=== PATIENT | female | born 1960 | race Caucasian/White ===

== ENCOUNTER → 2016-08-30 | Outpatient (CLI) | payer BC ==
[~2016-08-30] VITALS: Ht 160 cm; Wt 110.6 kg
[~2016-08-30] MED LIST: ACET-1256 PO; ASPEC81 PO; CALCTAB5 PO; CITA40TA12 PO; CLX20 PO; CMD5 PO; CMD75 PO; DIPH-437 PO; FLV1 PO; LEVO25TA PO; LIRA18IN SC; LISI-461 PO; LOSA50TA54 PO; MELA1TAB54 PO; MELATONIN PO; METF-382 PO; METF1000 PO; MULT-506 PO; SIMV40TA4 PO; SITA50TA3 PO; TEMA30CA4 PO; TRAZ50TA35 PO; WARF5TAB90 PO; WARF7.5T4 PO
[2016-08-30 16:03] VITALS: BP 134/80; PULSE 106; Ht 160 cm; Wt 110.6 kg
== END | disposition home or self-care (01) ==
LOC: C.NEUR 15:30
PROVIDERS: ATTEND Internal Medicine Pulmonary Disease
DX: G47.33 Obstructive sleep apnea (adult) (pediatric) (principal)

== ENCOUNTER 2016-10-03 09:36 | Observation (INO) | payer BC ==
[~2016-10-03] VITALS: Ht 160 cm; Wt 101.1 kg
[~2016-10-03 09:36] MED LIST changes: -ASPEC81 PO; -CITA40TA12 PO; -CMD5 PO; -LIRA18IN SC; -LOSA50TA54 PO; -MELA1TAB54 PO; -METF1000 PO; -SITA50TA3 PO; -TRAZ50TA35 PO; -WARF7.5T4 PO
[2016-10-03] MEDS ORDERED: CITA40TA12 PO (10:04)
--- NOTE | 2016-10-03 10:04 | EMERGENCY ROOM VISIT NOTE ---
History Report prepared by Artie: Subhash Cedeño Under the Supervision of: Dr. Lyudmila Murphy M.D. First contact with patient: 09:50 Chief Complaint: CARDIAC ASSESSMENT Stated Complaint: NECK AND LEFT ARM PAIN Nursing Triage Summary: pt reports mid chest pain that started 1 day ago feels like a cramp radiates into L shoulder and L arm , denies increased sob, reports Fri and sat. " I had a funny feeling in neck History of Present Illness The patient is a 56 year old female who presents to the Emergency Room with complaints of persistent discomfort in her neck that started 2 days ago. The patient notes that this discomfort radiates into her left arm. She also describes a fluttering sensation in her neck that she experienced over the weekend, but this discomfort has since resolved. The patient complained of chest pain two days ago, but notes that this symptom resolved on its own. She presents to the ED this morning because her neck discomfort was worsening. The patient also knows that she has been feeling more fatigued over the past few days. At this time, she denies pain in her chest or back, shortness of breath, or swelling in her legs. Source of History: patient Onset: 2 days ago Position: neck Quality: other (fluttering sensation) Timing: other (persistent) Associated Symptoms: + chest pain (over the weekend, but has since resolved on its own), No SOB, No back pain Note: Other associated symptoms: radiation to left arm, fluttering in neck sensation. Denies: swelling in her legs Review of Systems See HPI for pertinent positives & negatives. A total of 10 systems reviewed and were otherwise negative. Past Medical & Surgical Medical Problems: (1) Benign hypertension (2) Chest pain (3) Diabetes mellitus (4) malignant hematoma (5) Neck pain (6) Pulmonary embolism Family History FH: myocardial infarction Heart disease Social History Smoking Status: Never Smoker Marital Status: Housing Status: lives with family Occupation Status: employed Current/Historical Medications Scheduled Acetaminophen (Tylenol), 1,000 MG PO Q8HR PRN Aspirin (Aspirin EC Low Dose), 81 MG PO QAM Citalopram Hydrobromide (Celexa), 40 MG PO DAILY Liraglutide (Victoza), 1.8 MG SC DAILY Losartan Potassium (Cozaar), 50 MG PO DAILY Melatonin (Melatonin), 5 MG PO HS Metformin Hcl (Glucophage), 1,000 MG PO BID Simvastatin (Zocor), 40 MG PO QPM Sitagliptin (Januvia), Unknown Dose PO DAILY Trazodone Hcl (Trazodone), 50 MG PO HS Warfarin Sod (Coumadin), 5 MG PO 3XWK Warfarin Sod (Jantoven), 7.5 MG PO 4XWK Allergies Coded Allergies: No Known Allergies (Unverified , 10/03/16) Physical Exam Vital Signs Date Time Temp Pulse Resp B/P Pulse Ox O2 Delivery O2 Flow Rate FiO2 10/03/16 13:40 74 18 124/77 94 Room Air 10/03/16 13:18 71 10/03/16 12:06 67 18 125/84 96 Room Air 10/03/16 10:57 74 16 107/76 94 Room Air 10/03/16 10:42 88 107/76 96 Room Air 10/03/16 09:59 75 10/03/16 09:42 36.9 77 18 138/77 95 Room Air Physical Exam Vital signs reviewed. General: Obese otherwise well-appearing female, in no distress. HEENT: No scleral icterus, PERRLA, neck supple. Atraumatic. Cardiovascular: Regular rate and rhythm, no extra sounds. Pulmonary: Clear to auscultation bilaterally, normal work of breathing. Abdomen: Soft, nontender, nondistended, positive bowel sounds. Musculoskeletal: Atraumatic, no peripheral edema. Neurologic: Patient awake alert and oriented x 3, full strength in all 4 extremities. Cranial nerves 2 through 12 grossly intact. Skin: Warm, dry, no rash Medical Decision & Procedures ER Provider Diagnostic Interpretation: X-ray results as stated below per interpretation by me and the radiologist: CHEST ONE VIEW PORTABLE HISTORY: Atypical chest pain COMPARISON: Chest 09/04/2012. FINDINGS: The lungs are clear. Cardiac silhouette is normal in size. No pleural effusions. No pneumothorax. IMPRESSION: No acute process. Electronically signed by: Chandan Chavez M.D. 10/03/2016 10:55 AM Dictated Date/Time: 10/03/2016 10:54 AM Laboratory Results 10/03/16 10:00 Red Blood Count 4.28, Mean Corpuscular Volume 84.8, Mean Corpuscular Hemoglobin 28.5, Mean Corpuscular Hemoglobin Concent 33.6, Mean Platelet Volume 10.8, Neutrophils (%) (Auto) 54.9, Lymphocytes (%) (Auto) 35.4, Monocytes (%) (Auto) 7.0, Eosinophils (%) (Auto) 2.0, Basophils (%) (Auto) 0.5, Neutrophils # (Auto) 3.22, Lymphocytes # (Auto) 2.08, Monocytes # (Auto) 0.41, Eosinophils # (Auto) 0.12, Basophils # (Auto) 0.03 10/03/16 10:00 Test 10/03/16 10:00 10/03/16 12:29 White Blood Count 5.87 K/uL (4.8-10.8) Red Blood Count 4.28 M/uL (4.2-5.4) Hemoglobin 12.2 g/dL (12.0-16.0) Hematocrit 36.3 % (37-47) Mean Corpuscular Volume 84.8 fL (80-100) Mean Corpuscular Hemoglobin 28.5 pg (25-34) Mean Corpuscular Hemoglobin Concent 33.6 g/dl (32-36) Platelet Count 179 K/uL (130-400) Mean Platelet Volume 10.8 fL (7.4-10.4) Neutrophils (%) (Auto) 54.9 % Lymphocytes (%) (Auto) 35.4 % Monocytes (%) (Auto) 7.0 % Eosinophils (%) (Auto) 2.0 % Basophils (%) (Auto) 0.5 % Neutrophils # (Auto) 3.22 K/uL (1.4-6.5) Lymphocytes # (Auto) 2.08 K/uL (1.2-3.4) Monocytes # (Auto) 0.41 K/uL (0.11-0.59) Eosinophils # (Auto) 0.12 K/uL (0-0.5) Basophils # (Auto) 0.03 K/uL (0-0.2) RDW Standard Deviation 46.4 fL (36.4-46.3) RDW Coefficient of Variation 15.0 % (11.5-14.5) Immature Granulocyte % (Auto) 0.2 % Immature Granulocyte # (Auto) 0.01 K/uL (0.00-0.02) Prothrombin Time 28.2 SECONDS (9.0-12.0) Prothromb Time International Ratio 2.5 (0.9-1.1) Activated Partial Thromboplast Time 34.5 SECONDS (21.0-31.0) Partial Thromboplastin Ratio 1.3 Anion Gap 12.0 mmol/L (3-11) Est Creatinine Clear Calc Drug Dose 91.4 ml/min Estimated GFR () 92.0 Estimated GFR (Non- 79.4 BUN/Creatinine Ratio 12.0 (10-20) Calcium Level 9.1 mg/dl (8.5-10.1) Total Bilirubin 0.4 mg/dl (0.2-1) Direct Bilirubin 0.1 mg/dl (0-0.2) Aspartate Amino Transf (AST/SGOT) 35 U/L (15-37) Alanine Aminotransferase (ALT/SGPT) 59 U/L (12-78) Alkaline Phosphatase 60 U/L (45-117) Total Creatine Kinase 76 U/L (26-192) Total Protein 7.0 gm/dl (6.4-8.2) Albumin 3.7 gm/dl (3.4-5.0) Lipase 218 U/L (73-393) Hepatitis C Antibody Screen NEG (NEG) Bedside Troponin I 0.000 ng/ml (0-0.045) Laboratory results per my review. Medications Administered Medications (Trade) Dose Ordered Sig/Tammi Route Start Time Stop Time Status Last Admin Dose Admin Aspirin (Aspirin Chew) 324 mg NOW STAT PO 10/03/16 10:30 10/03/16 10:32 DC 10/03/16 10:42 324 MG ECG Indication: chest pain Rate (beats per minute): 71 Rhythm: normal sinus Findings: no acute ischemic change, no ectopy ED Course 0954: Past medical records reviewed. The patient was evaluated in room A3. A complete history and physical examination was performed. 1030: Ordered Aspirin 324 mg PO. 1253: At this time, I reevaluated the patient and discussed the treatment plan with her. She is comfortable with staying in the hospital for further evaluation. 1302: At this time, I discussed the patient's case with Dr. Vinson - Hospitalist [facility] and he agreed to accept the patient for further evaluation. Medical Decision Differential diagnoses: Acute coronary syndrome, pulmonary embolus, aortic dissection, musculoskeletal pain, pneumonia, pleural effusion, pneumothorax This pt was evaluated and appeared to be in no distress. IV access was obtained and lab work was drawn. Pt was given ASA to chew. 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 EKG reveals no acute ischemia. Lab work reveals negative cardiac enzymes. CXR is clear. Given pt's multiple cardiac risk factors, the case was d/w the hospitalist service for further management. Pt agrees with the plan. Consults Time Called: 1254 Consulting Physician: Dr. Vinson - Hospitalist [facility] [place] Returned Call: 1302 At this time, I discussed the patient's case with Dr. Vinson and he agreed to accept the patient for further evaluation. Impression Primary Impression: Chest pain radiating to upper extremity Scribe Attestation The scribe's documentation has been prepared under my direction and personally reviewed by me in its entirety. I confirm that the note above accurately reflects all work, treatment, procedures, and medical decision making performed by me. Departure Information Dispostion Being Evaluated By Hospitalist Prescriptions Aspirin (Aspirin EC Low Dose) 81 Mg Ectab 81 MG PO QAM for 30 Days Prov: Alejandra Schwab MD 10/04/16 Referrals Florence Romo DO (PCP)
[2016-10-03] MEDS ORDERED: LOSA50TA54 PO (10:05)
[2016-10-03] MEDS ORDERED: METF1000 PO (10:05)
[2016-10-03] MEDS ORDERED: CMD5 PO (10:07)
[2016-10-03] MEDS ORDERED: WARF7.5T4 PO (10:07)
[2016-10-03] MEDS ORDERED: LIRA18IN SC (10:08)
[2016-10-03] MEDS ORDERED: SITA50TA3 PO (10:08)
[2016-10-03] MEDS ORDERED: TRAZ50TA35 PO (10:09)
[2016-10-03] MEDS ORDERED: MELA1TAB54 PO (10:09)
[2016-10-03] MEDS ORDERED: ASPIRIN 81 MG CHEW PO STA (10:30)
[2016-10-03 10:56] LABS: BASO % 0.5 %; BASO ABS # 0.03 K/uL (0-0.2); COMPLETE YES; HEMATOCRIT 36.3 % (37-47); IG% 0.2 %; LYMPH % 35.4 %; LYMPH ABS # 2.08 K/uL (1.2-3.4); MEAN CELL VOLUME 84.8 fL (80-100); MEAN CORPUSCULAR HEMOGLOBIN 28.5 pg (25-34); MEAN CORPUSCULAR HGB CONC 33.6 g/dl (32-36); MEAN PLATELET VOLUME 10.8 fL (7.4-10.4); NEUT % 54.9 %; PLATELET COUNT 179 K/uL (130-400); RED BLOOD COUNT 4.28 M/uL (4.2-5.4); WHITE BLOOD COUNT 5.87 K/uL (4.8-10.8)
--- NOTE | 2016-10-03 10:56 | DIAGNOSTIC IMAGING REPORT ---
CHEST ONE VIEW PORTABLE HISTORY: Atypical chest pain COMPARISON: Chest 09/04/2012. FINDINGS: The lungs are clear. Cardiac silhouette is normal in size. No pleural effusions. No pneumothorax. IMPRESSION: No acute process. Electronically signed by: Chandan Chavez M.D. 10/03/2016 10:55 AM Dictated Date/Time: 10/03/2016 10:54 AM
[2016-10-03 11:04] LABS: INR 2.5 (0.9-1.1); PARTIAL THROMBOPLASTIN RATIO 1.3; PROTHROMBIN TIME (PATIENT) 28.2 SECONDS (9.0-12.0)
[2016-10-03 11:15] LABS: CALCIUM 9.1 mg/dl (8.5-10.1); CREATININE 0.83 mg/dl (0.60-1.20); POTASSIUM 4.2 mmol/L (3.5-5.1)
[2016-10-03 11:19] LABS: CKMB/CK RATIO 0.7 (0-3.0)
[2016-10-03] MEDS ORDERED: NITROGLYCERIN 0.4 MG SL PER TAB CHARGE SL PRN (14:00)
[2016-10-03] MEDS ORDERED: GLUCOSE 10 TABS/TUBE PO PRN (14:30)
[2016-10-03] MEDS ORDERED: GLUCAGON FOR INJ 1 MG VIAL SQ PRN (14:30)
[2016-10-03] MEDS ORDERED: DEXTROSE 50% 50 ML SYR IV PRN (14:30)
[2016-10-03] MEDS ORDERED: GLUCOSE 40% GEL 15 GM TUBE PO PRN (14:30)
[2016-10-03 14:48] VITALS: BP 135/85; PULSE 69; TEMP 36.9; O2SAT 98; Ht 160 cm; Wt 101.1 kg
--- NOTE | 2016-10-03 14:56 | History and Physical ---
History & Physical Date & Time of Service: Oct 03, 2016 at 14:34 Chief Complaint: Neck And Left Arm Pain Primary Care Physician: Florence Romo DO History of Present Illness Source: patient, partner This is a 6 y/o obese female with PMHx of HTN, DM, PE, HLD, PE (1998 and 2011) and depression presented to the hospital complaining of left sided neck and chest pain X2days. Patient states that yesterday around 1:00pm she had left sided chest pain, describes as "crampy", intermittent, rates it as 3/10, lasted for 3 minutes and non radiating. She then had L sided neck pain radiating to her left arm. Describes the pain as "dull", rates it as 3/10, and lasted for 3 minutes. No associated symptoms. She had total 3-4 episodes of intermittent chest pain and neck pain. On Monday and Monday this had total 4 episodes "flattering" sensation on her neck, which lasted for 3 minutes. She was not active and was resting when she had the chest and neck pain. Never had this type of pain before. Denies SOB, nausea, vomiting, diaphoresis, swelling of the leg, numbness, weakness or any other additional complaints. Currently she is asymptomatic and denies any complaints. Patient's mother had heart attack at early 50s and also paternal grandmother because of heart attack at early 50s. Past Medical/Surgical History Medical Problems: (1) Benign hypertension Status: Chronic (2) Diabetes mellitus II Status: Chronic (3) Malignant melanoma Status: Chronic (4) Pulmonary embolism Status: Chronic (5) Hyperlipidemia Status: Chronic (6) Depression Status: Chronic (7) Obese Family History FH: myocardial infarction Heart disease Mother had heart attack at early 50s. Paternal grandmother of heart attack at early 50s. Social History Smoking Status: Never Smoker Alcohol Use: socially Drug Use: none Marital Status: Housing status: lives with significant other Occupational Status: employed Immunizations History of Influenza Vaccine: Yes Influenza Vaccine Date: Apr 28, 2012 History of Tetanus Vaccine?: Yes Tetanus Immunization Date: Sep 04, 2009 History of Pneumococcal: No History of Hepatitis B Vaccine: Yes Hepatitis Immunization Date: Sep 04, 2003 Multi-Drug Resistant Organisms History of MDRO: No Allergies Coded Allergies: No Known Allergies (Unverified , 10/03/16) Home Medications Scheduled Acetaminophen (Tylenol), 1,000 MG PO Q8HR PRN Citalopram Hydrobromide (Celexa), 40 MG PO DAILY Liraglutide (Victoza), 1.8 MG SC DAILY Losartan Potassium (Cozaar), 50 MG PO DAILY Melatonin (Melatonin), 5 MG PO HS Metformin Hcl (Glucophage), 1,000 MG PO BID Simvastatin (Zocor), 40 MG PO QPM Sitagliptin (Januvia), Unknown Dose PO DAILY Trazodone Hcl (Trazodone), 50 MG PO HS Warfarin Sod (Coumadin), 5 MG PO 3XWK Warfarin Sod (Jantoven), 7.5 MG PO 4XWK Review of Systems Constitutional: No chills, No fever Respiratory: No cough, No dyspnea at rest, No dyspnea on exertion, No shortness of breath Cardiovascular: No chest pain, No edema Abdomen: No constipation, No diarrhea, No nausea, No pain, No vomiting Musculoskeletal: No muscle pain Genitourinary - Female: No dysuria Neurologic: No numbness/tingling Integumentary: No rash Physical Exam Vital Signs Date Time Temp Pulse Resp B/P Pulse Ox O2 Delivery O2 Flow Rate FiO2 10/03/16 13:40 74 18 124/77 94 Room Air 10/03/16 13:18 71 10/03/16 12:06 67 18 125/84 96 Room Air 10/03/16 10:57 74 16 107/76 94 Room Air 10/03/16 10:42 88 107/76 96 Room Air 10/03/16 09:59 75 10/03/16 09:42 36.9 77 18 138/77 95 Room Air General Appearance: WD/WN, no apparent distress, + obese Eyes: PERRL, EOMI Neck: supple, no JVD, trachea midline Respiratory/Chest: chest non-tender, lungs clear, normal breath sounds, no respiratory distress Cardiovascular: regular rate, rhythm, no edema, no JVD, no murmur Abdomen/GI: normal bowel sounds, non tender, soft, + pertinent finding (obese) Extremities/Musculoskelatal: normal inspection, no calf tenderness, no pedal edema, non-tender Neurologic/Psych: alert, normal mood/affect, oriented x 3 Skin: normal color, warm/dry, no rash Diagnostics Laboratory Results Results Past 24 Hours Test 10/03/16 10:00 10/03/16 10:40 10/03/16 12:29 Range/Units White Blood Count 5.87 4.8-10.8 K/uL Red Blood Count 4.28 4.2-5.4 M/uL Hemoglobin 12.2 12.0-16.0 g/dL Hematocrit 36.3 37-47 % Mean Corpuscular Volume 84.8 80-100 fL Mean Corpuscular Hemoglobin 28.5 25-34 pg Mean Corpuscular Hemoglobin Concent 33.6 32-36 g/dl Platelet Count 179 130-400 K/uL Mean Platelet Volume 10.8 7.4-10.4 fL Neutrophils (%) (Auto) 54.9 % Lymphocytes (%) (Auto) 35.4 % Monocytes (%) (Auto) 7.0 % Eosinophils (%) (Auto) 2.0 % Basophils (%) (Auto) 0.5 % Neutrophils # (Auto) 3.22 1.4-6.5 K/uL Lymphocytes # (Auto) 2.08 1.2-3.4 K/uL Monocytes # (Auto) 0.41 0.11-0.59 K/uL Eosinophils # (Auto) 0.12 0-0.5 K/uL Basophils # (Auto) 0.03 0-0.2 K/uL RDW Standard Deviation 46.4 36.4-46.3 fL RDW Coefficient of Variation 15.0 11.5-14.5 % Immature Granulocyte % (Auto) 0.2 % Immature Granulocyte # (Auto) 0.01 0.00-0.02 K/uL Prothrombin Time 28.2 9.0-12.0 SECONDS Prothromb Time International Ratio 2.5 0.9-1.1 Activated Partial Thromboplast Time 34.5 21.0-31.0 SECONDS Partial Thromboplastin Ratio 1.3 Sodium Level 141 136-145 mmol/L Potassium Level 4.2 3.5-5.1 mmol/L Chloride Level 107 98-107 mmol/L Carbon Dioxide Level 22 21-32 mmol/L Anion Gap 12.0 3-11 mmol/L Blood Urea Nitrogen 10 7-18 mg/dl Creatinine 0.83 0.60-1.20 mg/dl Est Creatinine Clear Calc Drug Dose 91.4 ml/min Estimated GFR () 92.0 Estimated GFR (Non- 79.4 BUN/Creatinine Ratio 12.0 10-20 Random Glucose 141 70-99 mg/dl Calcium Level 9.1 8.5-10.1 mg/dl Total Bilirubin 0.4 0.2-1 mg/dl Direct Bilirubin 0.1 0-0.2 mg/dl Aspartate Amino Transf (AST/SGOT) 35 15-37 U/L Alanine Aminotransferase (ALT/SGPT) 59 12-78 U/L Alkaline Phosphatase 60 45-117 U/L Total Creatine Kinase 76 26-192 U/L Creatine Kinase MB 0.5 0.5-3.6 ng/ml Creatine Kinase MB Ratio 0.7 0-3.0 Total Protein 7.0 6.4-8.2 gm/dl Albumin 3.7 3.4-5.0 gm/dl Lipase 218 73-393 U/L Bedside Troponin I 0.000 0.000 0-0.045 ng/ml CXR normal Normal EKG Impression Assessment and Plan This is a 6 y/o obese female with PMHx of HTN, DM II, PE, HLD, PE (in 1998 and 2011) and depression presented to the hospital complaining of left sided neck and chest pain X2days. 1. Atypical chest pain/neck pain/unstable angina - Patient has many risk factors including obese, age, HTN, DM, HLD, and FHx of heart problems. - Patient will be admitted to Tele for observation - Order Echo - pending - Start her on ASA 81mg daily - Nitro if has chest pain or abnormal EKG - Trend troponin if has chest pain - If all the works up are negative patient will need to have stress test. Consider Cardio consult then - Continue to monitor in Tele 2. HTN - Continue Losartan 50mg daily 3. DMII - Continue all the home medications (Victoza 1.8mg and Januvia 100mg). Hold Metformin - On sliding scale 4. Hyperlipidemia - Continue Simvastatin 40mg daily 5. Depression - Continue Citalopram 40mg and trazodone 50mg 6. Hx of Pulmonary Embolism - Continue Coumadin 5mg and 7.5mg 7. DVT prophylaxis - Coumadin 8. Code Status - Full code Resuscitation Status FULL RESUSCITATION VTE Prophylaxis VTE Risk Assessment Done? Y/N: Yes Risk Level: Moderate Given or contraindicated: Warfarin (Coumadin) Note more than 45 minutes Assessment and Plan Attending Addendum: I have physically seen and examined this patient, have directed their medical care, have supervised the medical residents activities, and agree with the H&P as noted above, with the following changes: NONE The patient is awake, well-developed and adequately nourished, alert and oriented 3, normocephalic and atraumatic, lying in bed and in no acute distress. HEENT--PERRL, EOMI, mucous membranes and oropharynx dry. Neck--supple, no JVD or bruits, thyroid normal, trachea midline, no adenopathy. Heart--normal S1 and S2, no extra beats, no murmurs, rubs or gallops. Lungs--clear bilaterally with good air movement, no respiratory distress, no accessory muscle use. Abdomen--normal bowel sounds and soft, nontender and nondistended, no hernias or masses, no organomegaly. Extremities--no cyanosis, clubbing or edema. There are good distal pulses b/l. Dermatologic--normal skin turgor, normal color, warm and dry, no abnormal lymph nodes, no rash. Neurologic--cranial nerves II through XII grossly intact, motor and sensory examination normal. Rheumatologic--normal range of motion, nontender, muscles and joints. Psychiatric--normal affect. Assessment and Plan: Precordial chest pain--the patient will be admitted to the telemetry unit, for serial cardiac enzymes, cardiac rhythm monitoring at 2-D echocardiogram with Dopplers. Place on aspirin 81 mg by mouth daily. Continue losartan 50 mg by mouth daily. Risk factors include obesity, family history, age, hypertension, and diabetes mellitus. If workup is negative, she should have a stress echocardiogram prior to discharge. Pulmonary embolism--continue warfarin 5 alternating 7.5 mg daily. Hypercholesterolemia--continue simvastatin 40 mg by mouth daily Diabetes mellitus--hold metformin 1000 mg by mouth twice a day, continue Januvia 50 mg by mouth daily and current dosing of Victoza. Depression/insomnia--continue Celexa 40 mg by mouth daily and trazodone 50 mg by mouth at bedtime. .
[2016-10-03] MEDS ORDERED: IV FLUIDS COMPLETED PRN (15:00)
[2016-10-03] MEDS: INSULIN ASPART 100 UNITS/ML 3 ML PEN SC SCH ×2 (18:34→20:52)
[2016-10-03 19:54] VITALS: BP 122/69; PULSE 76; TEMP 36.8; O2SAT 94
[2016-10-03 20:00] VITALS: O2SAT 94
[2016-10-03] MEDS ORDERED: TRAZODONE HCL 50 MG TAB PO SCH (21:00)
[2016-10-03] MEDS ORDERED: SIMVASTATIN 40 MG TAB PO SCH (21:00)
[2016-10-03] MEDS ORDERED: WARFARIN SOD 5 MG TAB PO ONE (21:45)
[2016-10-04 00:06] VITALS: BP 117/73; PULSE 80; TEMP 36.5; O2SAT 94
[2016-10-04 03:45] VITALS: BP 122/78; PULSE 72; TEMP 36.6; O2SAT 96
[2016-10-04 06:56] VITALS: BP 98/65; PULSE 74; TEMP 36.6; O2SAT 96
[2016-10-04] MEDS: INSULIN ASPART 100 UNITS/ML 3 ML PEN SC SCH ×3 (08:03→17:40)
[2016-10-04] MEDS ORDERED: SITAGLIPTIN 100 MG TAB PO SCH (09:00)
[2016-10-04] MEDS ORDERED: CITALOPRAM 40 MG TAB PO SCH (09:00)
[2016-10-04] MEDS ORDERED: ASPIRIN 81 MG ECTAB PO SCH (09:00)
[2016-10-04] MEDS ORDERED: LOSARTAN POTASSIUM 50 MG TAB PO SCH (09:00)
[2016-10-04 11:05] VITALS: BP 126/78; PULSE 75; TEMP 36.8; O2SAT 91
--- NOTE | 2016-10-04 15:01 | Discharge Summary ---
Discharge Summary Admission Date: Oct 03, 2016 at 14:16 Discharge Date: Oct 04, 2016 Discharge Disposition: Home Principal Diagnosis: Chest discomfort Problems/Secondary Diagnoses: 1. HTN 2. DM 3. PE 4. HLD 5. PE (1998 and 2011) 6. Depression Immunizations: Have You Had Influenza Vaccine: Yes Influenza Vaccine Date: Apr 28, 2012 History of Tetanus Vaccine?: Yes Tetanus Immunization Date: Sep 04, 2009 History of Pneumococcal: No History of Hepatitis B Vaccine: Yes Hepatitis Immunization Date: Sep 04, 2003 Procedures: CHEST ONE VIEW PORTABLE HISTORY: Atypical chest pain COMPARISON: Chest 09/04/2012. FINDINGS: The lungs are clear. Cardiac silhouette is normal in size. No pleural effusions. No pneumothorax. IMPRESSION: No acute process. Electronically signed by: Chandan Chavez M.D. 10/03/2016 10:55 AM Dictated Date/Time: 10/03/2016 10:54 AM The status of this report is Signed. Draft = Not yet reviewed or approved by Radiologist. Signed = Reviewed and approved by Radiologist. Stress ECHO (Jenny Ordaz, SHIREEN) Medication Reconciliation Continued Medications: Acetaminophen (Tylenol) 500 Mg Tab 1000 MG PO Q8HR PRN, TAB Citalopram Hydrobromide (Celexa) 40 Mg Tab 40 MG PO DAILY, TAB Liraglutide (Victoza) 18 Mg/3 Ml Inj 1.8 MG SC DAILY Losartan Potassium (Cozaar) 50 Mg Tab 50 MG PO DAILY, TAB Melatonin (Melatonin) 5 Mg Tab 5 MG PO HS Metformin Hcl (Glucophage) 1,000 Mg Tab 1000 MG PO BID, TAB Simvastatin (Zocor) 40 Mg Tab 40 MG PO QPM, TAB Sitagliptin (Januvia) 50 Mg Tab Unknown Dose PO DAILY, TAB Trazodone Hcl (Trazodone) 50 Mg Tab 50 MG PO HS, TAB Warfarin Sod (Coumadin) 5 Mg Tab 5 MG PO 3XWK 5 mg monday and monday Warfarin Sod (Jantoven) 7.5 Mg Tab 7.5 MG PO 4XWK, TAB 7.5 mg monday, monday, , and monday Referrals At Discharge Follow up Referrals: Family Practice Referral - Within 1 Week with Florence Romo, DO Discharge Exam Review of Systems: Constitutional: No chills, No fatigue, No fever, No sweats, No weakness Respiratory: No cough, No hemoptysis, No shortness of breath Cardiovascular: No chest pain, No edema, No palpitations Abdomen: No constipation, No diarrhea, No nausea, No pain, No vomiting Musculoskeletal: No calf pain, No joint pain, No muscle pain, No swelling Genitourinary - Female: No dysuria, No hematuria Neurologic: No numbness/tingling, No weakness Psychiatric: No anxiety, No depression symptoms Hematologic / Lymphatic: No abnormal bleeding/bruising Integumentary: No itch, No new/changing skin lesions, No rash Physical Exam: General Appearance: no apparent distress Eyes: normal inspection, PERRL ENT: hearing grossly normal Neck: supple Respiratory/Chest: lungs clear, no respiratory distress, no accessory muscle use Cardiovascular: regular rate, rhythm, normal peripheral pulses Abdomen / GI: normal bowel sounds, non tender, soft Extremities: no calf tenderness, no pedal edema Neurologic/Psychiatric: alert, normal mood/affect, oriented x 3 Skin: normal color, warm/dry, no rash (Jenny Ordaz, PA-C) Hospital Course HPI: This is a 56 y/o obese female with PMHx of HTN, DM, PE, HLD, PE (1998 and 2011) and depression presented to the hospital complaining of left sided neck and chest pain X2days. Patient states that yesterday around 1:00pm she had left sided chest pain, describes as "crampy", intermittent, rates it as 3/10, lasted for 3 minutes and non radiating. She then had L sided neck pain radiating to her left arm. Describes the pain as "dull", rates it as 3/10, and lasted for 3 minutes. No associated symptoms. She had total 3-4 episodes of intermittent chest pain and neck pain. On Monday and Monday this had total 4 episodes "flattering" sensation on her neck, which lasted for 3 minutes. She was not active and was resting when she had the chest and neck pain. Never had this type of pain before. Denies SOB, nausea, vomiting, diaphoresis, swelling of the leg, numbness, weakness or any other additional complaints. Patient's mother had heart attack at early 50s and also paternal grandmother because of heart attack at early 50s. Chest discomfort, cardiac R/O: - Admit to tele for cardiac monitoring- reviewed, no acute events - Patient has many risk factors including obese, age, HTN, DM, HLD, and FHx of heart problems. - Start her on ASA 81mg daily - Nitro if has chest pain or abnormal EKG - Trended troponin x2- negative - Stress ECHO HTN: - Continue Losartan 50mg daily DMII: - Continue all the home medications (Victoza 1.8mg and Januvia 100mg). Hold Metformin - BSG ACHS with sliding insulin scale - Last recorded ha1c in March 2016, at 7.1 Hyperlipidemia: - Continue Simvastatin 40mg daily - Reviewed lipid panel from March 2016 in [employer] Depression: - Continue Citalopram 40mg and Trazodone 50mg Hx of Pulmonary Embolism: - Continue Coumadin 5mg and 7.5mg alternating days - Follow INR - Patient was hemodynamically stable at admission and on Coumadin--> no PE workup at this time DVT prophylaxis: - Coumadin Code Status: - LEVEL I, FULL Dispo: Discharge to home Total Time Spent: Greater than 30 minutes This includes examination of the patient, discharge planning, medication reconciliation, and communication with other providers. (Jenny Ordaz, SHIREEN) Discharge Instructions Please refer to the electronic Patient Visit Report (Discharge Instructions) for additional information. (Jenny Ordaz, SHIREEN) Follow-Up Please follow-up with your PCP within 5-7 days Please follow-up/keep all of your subspecialty appointments Continue with routine INR checks (Jenny Ordaz, CHRISTIANOC) Additional Copies To Florence Romo DO Reviewed: Pt Seen/Exam by JHON Flores Notes, Labs, RAD, EKG (Alejandra Schwab MD) History Physician Global Compensation Director Supervision Note: I interviewed and examined the patient. Discussed with RAEGAN Bunch and agree with findings and plan as documented in the note. Any exceptions or clarifications are listed here: Pt has not had recurrence of her left sided chest pain or pain in left neck down into left arm like what brought her in. Each episode lasted about 30 seconds and felt like a cramping feeling. Denies indigestion, no new meds or changes to meds, no dietary changes. No neck pain. She did have a mild headache for about 8 hours through the night last night that resolved on its own and has not returned. She feels well now, had normal stress ECHO, and is ready for discharge to home. Her BP was significantly elevated during her stress but is now normal. SHe is not currently on any sort of exercise program at home. Vitals reviewed Morbidly obese, AAOx3 Neck: obese, no TTP, FROM RRR no mgr nl S1S2, no carotid bruits CTAB no wcr Abd soft NT ND +BS Ext no edema, no calf tenderness Skin: no rashes A/P: 56 yo female with DMII, HTN, obesity, anxiety, here with atypical left sided chest and neck pain. SHe had negative serial troponin/cardiac markers, normal Stress ECHO and ruled out for ACS. Labs were otherwise unremarkable, CXR was normal. She was never hypoxic or dyspneic. Her INR was therapeutic at 2.5 making PE highly unlikely. It is unclear what the etiology of her pain was but because it was fleeting and is now resolved, she is stable for discharge to home with close PCP follow up. COuld be GI in nature or musculoskeletal. Documented By: Alejandra Schwab (Alejandra Schwab MD)
--- NOTE | 2016-10-04 15:05 | Discharge Instructions ---
Discharge Instructions Admission Reason for Admission: Chest Pain, Neck Pain (Jenny Ordaz PA-C) Discharge Discharge Diagnosis / Problem: Chest discomfort (Jenny Ordaz PA-C) Discharge Goals Goal(s): Decrease discomfort, Diagnostic testing, Prevent Disease Progression (Jenny Ordaz PA-C) Activity Recommendations Activity Limitations: resume your previous activity . (Jenny Ordaz PA-C) Instructions / Follow-Up Instructions / Follow-Up Resume all regular home medications as prescribed to you Continue with routine INR checks as you have been Please follow-up with your PCP within 5-7 days Please follow-up/keep all of your subspecialty appointments (Jenny Ordaz PA-C) Current Hospital Diet Patient's current hospital diet: AHA Diet (Heart Healthy), Diabetes Type 2 Diet (Jenny Ordaz PA-C) Discharge Diet Recommended Diet: AHA Diet (Heart Healthy), Diabetes Type 2 Diet (Jenny Ordaz PA-C) Procedures Procedures Performed: 1. CXR 2. Stress ECHO (Jenny Ordaz PA-C) Pending Studies Studies pending at discharge: no (Jenny Ordaz PA-C) Laboratory Results Last Resulted 10/03/16 10:00 Red Blood Count 4.28, Mean Corpuscular Volume 84.8, Mean Corpuscular Hemoglobin 28.5, Mean Corpuscular Hemoglobin Concent 33.6, Mean Platelet Volume 10.8, Neutrophils (%) (Auto) 54.9, Lymphocytes (%) (Auto) 35.4, Monocytes (%) (Auto) 7.0, Eosinophils (%) (Auto) 2.0, Basophils (%) (Auto) 0.5, Neutrophils # (Auto) 3.22, Lymphocytes # (Auto) 2.08, Monocytes # (Auto) 0.41, Eosinophils # (Auto) 0.12, Basophils # (Auto) 0.03 Last Resulted 10/03/16 10:00 Past 24 Hours Test 10/04/16 10:56 10/04/16 11:30 Range/Units Creatine Kinase MB Ratio 0-3.0 Creatine Kinase MB 0.6 0.5-3.6 ng/ml Troponin I < 0.015 0-0.045 ng/ml Last 24 Hours Test 10/03/16 15:14 2/13/17 17:10 10/03/16 20:37 10/04/16 07:59 Bedside Glucose 138 mg/dl 114 mg/dl 112 mg/dl 148 mg/dl Test 10/04/16 10:56 10/04/16 11:29 10/04/16 11:30 Creatine Kinase MB Ratio Bedside Glucose 138 mg/dl Creatine Kinase MB 0.6 ng/ml Troponin I < 0.015 ng/ml (Jenny Ordaz ., RAEGAN-C) Medical Emergencies . Who to Call and When: Medical Emergencies: If at any time you feel your situation is an emergency, please call 911 immediately. . (Jenny Ordaz PA-C) Non-Emergent Contact Non-Emergency issues call your: Primary Care Provider Call Non-Emergent contact if: you have a fever, your pain is not controlled, your pain is worsening, your pain is unusual for you, your pain is concerning you, you have any medication questions . (Jenny Ordaz ., RAEGAN-C) . "Provider Documentation" section prepared by Jenny Ordaz. (Jenny Ordaz, RAEGAN-C) VTE Core Measure Inpt VTE Proph given/why not?: Warfarin (Coumadin) (Jenny Ordaz PA-C)
[2016-10-04] MEDS ORDERED: PERFLUTREN LIPID MICROSPHERE (DEFINITY) IV ONE (15:28)
[2016-10-04 15:46] VITALS: BP 102/66; PULSE 83; TEMP 36.9; O2SAT 94
[2016-10-04] MEDS ORDERED: WARFARIN SOD 7.5 MG TAB PO SCH (16:00)
--- NOTE | 2016-10-04 16:36 | EXERCISE STRESS ECHO ---
*NOTICE TO RECEIVING DEMOCRAT AGENCY This information is strictly Confidential and protected under [place] law. [place] law prohibits you from making any further disclosure of this information unless further disclosure is expressly permitted by the written consent of the person to whom it pertains or is authorized by law. A general authorization for the release of medical or other information is not sufficient for this purpose. Hospital accepts no responsibility if the information is made available to any other person, INCLUDING THE PATIENT. Interpretation Summary * Name: OLEGLANNY Study Date: 10/04/2016 02:12 PM BP: 155/63 mmHg * Patient Location: [facility]\S\N283\S\2 HR: 84 * : 1960 (M/d/yyyy) Gender: Female Height: 63 in * Age: 56 yrs Ethnicity: CA Weight: 222 lb * Ordering Physician: Jenny Ordaz * Referring Physician: Self, Referred * Performed By: Lanny Flaherty RDCS * * Reason For Study: CHEST PAIN * BSA: 2.0 m2 * History: CHEST PAIN * -- Conclusions -- * Normal stress echocardiogram at 5.8 METS and a peak heart rate of 99% maximum predicted. * No exercise induced chest pain. * No ECG changes. * Baseline echocardiogram notes normal left ventricular systolic function. Procedure Details * ECHOEX, CPT #19574 * A contrast injection of Definity was performed to improve assessment of LV function. * Contrast was injected into an intravenous site in the left arm. * One vial of Definity ultrasound contrast was diluted in normal saline to a total volume of 10 ml. A total of '4' ml of solution was administered during imaging. * Lot # [id number] of Definity utilized for procedure. * Expiration date 1 OCT 08. * The attending nurse who injected the contrast agent was ALYSA RAZA RN. Left Ventricle * Resting wall motion: Normal. Stress wall motion: Appropriate increase in Left ventricular systolic function and decrease in cavity size. No stress induced segmental wall motion abnormalities. Stress Parameters * The baseline ECG displays normal sinus rhythm. * Stress ECG: No ST changes. No arrhythmias. * The stress portion of this study was personally supervised by the undersigned interpreting physician. * Rest heart rate was '84' BPM. * Rest blood pressure was '155/63' * Maximum heart rate achieved was 164 bpm. * Maximum heart rate was 99 % of maximum age-predicted heart rate. * Maximum blood pressure was '242/32' * Total exercise time was '4:02' * Maximum exercise MET level achieved was '5.80' METS * Maximum treadmill speed was '2.50' miles per hour. * Maximum treadmill elevation was '12.00'% grade. * Exercise was terminated due to 'ACHIEVING TARGET HR'
[2016-10-04] MEDS ORDERED: ASPEC81 PO (18:13)
[2016-10-04 18:19] VITALS: BP 102/66; PULSE 83; TEMP 36.9; O2SAT 94
[2016-10-05] MEDS ORDERED: WARFARIN SOD 5 MG TAB PO SCH (16:00)
== END 2016-10-04 19:00 | disposition home or self-care (01) ==
LOC: ENRESERVDT → ENRESERVTM → C.EDB 09:38 → C.MED 14:16
PROVIDERS: ADMIT Hospitalist; ATTEND Hospitalist
DX: R07.89 Other chest pain (principal); M54.2 Cervicalgia; I10 Essential (primary) hypertension; E11.9 Type 2 diabetes mellitus without complications; E78.5 Hyperlipidemia, unspecified; E66.9 Obesity, unspecified; F32.9 Major depressive disorder, single episode, unspecified; Z51.81 Encounter for therapeutic drug level monitoring; Z79.899 Other long term (current) drug therapy; Z79.01 Long term (current) use of anticoagulants; Z79.84 Long term (current) use of oral hypoglycemic drugs; Z86.711 Personal history of pulmonary embolism; Z68.39 Body mass index [BMI] 39.0-39.9, adult; Z82.49 Family history of ischemic heart disease and other diseases of the circulatory system

== ENCOUNTER → 2016-10-18 | Outpatient (CLI) | payer BC ==
[~2016-10-18] MED LIST changes: +ASPEC81 PO; -CALCTAB5 PO; +CITA40TA12 PO; -CLX20 PO; +CMD5 PO; -CMD75 PO; -DIPH-437 PO; -FLV1 PO; +GADAVIST IV PRN; -LEVO25TA PO; +LIRA18IN SC; -LISI-461 PO; +LOSA50TA54 PO; +MELA1TAB54 PO; -MELATONIN PO; -METF-382 PO; +METF1000 PO; -MULT-506 PO; +SITA50TA3 PO; -TEMA30CA4 PO; +TRAZ50TA35 PO; -WARF5TAB90 PO; +WARF7.5T4 PO
--- NOTE | 2016-10-18 09:36 | DIAGNOSTIC IMAGING REPORT ---
MRI OF THE BRAIN WITHOUT AND WITH IV CONTRAST CLINICAL HISTORY: R41.3 Memory changes mental status change COMPARISON STUDY: No previous studies for comparison. TECHNIQUE: Utilizing a 1.5 Rebeca magnet and dedicated coil, multiplanar, multiecho imaging of the brain was performed pre and postcontrast administration. IV administration of 9.5 mL of Gadavist contrast was uneventful. FINDINGS: Normal signal characteristics of the cerebellar as well as cerebral hemispheres. Diffusion-weighted images are unremarkable. Postcontrast images are negative. Sella and parasellar regions are unremarkable. Internal artery canals are symmetric. IMPRESSION: Normal study. Electronically signed by: Patrick Mendez M.D. 10/18/2016 9:35 AM Dictated Date/Time: 10/18/2016 9:33 AM
== END | disposition home or self-care (01) ==
LOC: C.MRIBC 08:30
PROVIDERS: ATTEND Family Medicine
DX: R41.3 Other amnesia (principal)

== ENCOUNTER → 2016-10-19 | Outpatient (CLI) | payer BC ==
[~2016-10-19] MED LIST changes: -GADAVIST IV PRN
[2016-10-19 10:01] LABS: CHOLESTEROL/HDL RATIO 3.1; THYROID STIMULATING HORMONE 1.56 uIu/ml (0.300-4.500)
[2016-10-19 10:22] LABS: ESTIMATED AVERAGE GLUCOSE 160 mg/dl; HA1C FLAG Normal (Normal)
[2016-10-19 10:50] LABS: RATIO 8.2 mcg/mg (0-30.0)
== END | disposition home or self-care (01) ==
LOC: C.LAB 07:30
PROVIDERS: ATTEND Family Medicine
DX: R41.3 Other amnesia (principal); E11.9 Type 2 diabetes mellitus without complications

== ENCOUNTER → 2016-10-31 | Outpatient (CLI) | payer BC ==
--- NOTE | 2016-11-01 10:57 | MAMMOGRAPHY REPORT ---
BILATERAL DIGITAL SCREENING MAMMOGRAM WITH CAD: 10/31/2016 CLINICAL HISTORY: Routine screening. Patient has no complaints. TECHNIQUE: Bilateral CC, MLO and XCCL views were obtained. Current study was also evaluated with a Computer Aided Detection (CAD) system. COMPARISON: Comparison is made to exams dated: 10/26/2015 mammogram, 10/16/2013 mammogram, 10/22/2014 ma mmogram, 10/11/2012 mammogram, 10/11/2011 mammogram, and 09/27/2010 mammogram - [facility]ter. BREAST COMPOSITION: There are scattered areas of fibroglandular density in both breasts. FINDINGS: There are scattered stable benign rim calcifications in the breasts. Stable nodularity bi laterally. No new suspicious mass, architectural distortion or cluster of microcalcifications is se en. IMPRESSION: ACR BI-RADS CATEGORY 1: NEGATIVE There is no mammographic evidence of malignancy. A 1 year screening mammogram is recommended. The p atient will receive written notification of the results. Approximately 10% of breast cancers are not detected with mammography. A negative mammographic repor t should not delay biopsy if a clinically suggestive mass is present. Brandi Gray M.D. ay/:10/31/2016 16:12:21 Soap Drier Tender: José Manuel BRUNO(R)(M), [facility] letter sent: Normal 1/2 BI-RADS Code: ACR BI-RADS Category 1: Negative
== END | disposition home or self-care (01) ==
LOC: C.MAMM 13:31
PROVIDERS: ATTEND Family Medicine
DX: Z12.31 Encounter for screening mammogram for malignant neoplasm of breast (principal)

== ENCOUNTER → 2017-02-24 | Outpatient (CLI) | payer BC ==
[~2017-02-24] VITALS: Ht 160 cm; Wt 107.7 kg
[2017-02-24 15:54] VITALS: BP 119/72; PULSE 96; Ht 160 cm; Wt 107.7 kg
== END | disposition home or self-care (01) ==
LOC: C.NEUR 15:20
PROVIDERS: ATTEND Physician Assistant
DX: G47.33 Obstructive sleep apnea (adult) (pediatric) (principal)

== ENCOUNTER → 2017-05-20 | Outpatient (CLI) | payer BC ==
[2017-05-20 11:23] LABS: BLOOD UREA NITROGEN 12 mg/dl (7-18); BUN/CREATININE RATIO 14.7 (10-20); CARBON DIOXIDE 22 mmol/L (21-32); CHLORIDE 109 mmol/L (98-107); CREATININE 0.81 mg/dl (0.60-1.20); GLUCOSE 169 mg/dl (70-99); POTASSIUM 4.4 mmol/L (3.5-5.1); SODIUM 140 mmol/L (136-145)
[2017-05-20 11:34] LABS: ALKALINE PHOSPHATASE 62 U/L (45-117); ALT/SGPT 56 U/L (12-78); AST/SGOT 32 U/L (15-37); CHOLESTEROL 139 mg/dl (0-200); CHOLESTEROL/HDL RATIO 2.5; HDL CHOLESTEROL 55 mg/dl; LDL CHOLESTEROL CALCULATED 55 mg/dl; TRIGLYCERIDES 143 mg/dl (0-150); VERY LOW DENSITY LIPOPROT CALC 29 mg/dl
== END | disposition home or self-care (01) ==
LOC: C.LABSPEC 10:35
PROVIDERS: ATTEND Family Medicine
DX: E11.9 Type 2 diabetes mellitus without complications (principal)

== ENCOUNTER → 2017-06-12 | Outpatient (CLI) | payer BC ==
[2017-06-12 09:41] LABS: URINE APPEARANCE CLEAR (CLEAR); URINE BILIRUBIN NEG (NEG); URINE COLOR DK YELLOW; URINE EPITHELIAL CELL AUTO >30 /lpf (0-5); URINE NITRITE NEG (NEG); URINE SPECIFIC GRAVITY 1.032 (1.000-1.030); UROBILINOGEN NEG (NEG)
[2017-06-12 09:44] LABS: MANUAL MICROSCOPIC REQUIRED? NO; REVIEW REQ? YES
[2017-06-12 09:58] LABS: ALT/SGPT 60 U/L (12-78); AST/SGOT 27 U/L (15-37); BLOOD UREA NITROGEN 10 mg/dl (7-18); BUN/CREATININE RATIO 12.9 (10-20); CALCIUM 8.2 mg/dl (8.5-10.1); CARBON DIOXIDE 23 mmol/L (21-32); CHLORIDE 111 mmol/L (98-107); CREATININE 0.79 mg/dl (0.60-1.20); GLUCOSE 171 mg/dl (70-99); POTASSIUM 3.8 mmol/L (3.5-5.1); SODIUM 142 mmol/L (136-145)
[2017-06-12 10:01] LABS: ALB/GLOB RATIO 1.1 (0.9-2); ALKALINE PHOSPHATASE 61 U/L (45-117)
== END | disposition home or self-care (01) ==
LOC: C.LAB 07:18
PROVIDERS: ATTEND Nurse Practitioner Adult Health
DX: R19.7 Diarrhea, unspecified (principal); R31.29 Other microscopic hematuria

== ENCOUNTER → 2017-11-02 | Outpatient (CLI) | payer BC ==
--- NOTE | 2017-11-03 13:55 | MAMMOGRAPHY REPORT ---
BILATERAL DIGITAL SCREENING MAMMOGRAM TOMOSYNTHESIS WITH CAD: 11/02/2017 CLINICAL HISTORY: Routine screening. Patient has no complaints. TECHNIQUE: Breast tomosynthesis in addition to standard 2D mammography was performed. Current study was also evaluated with a Computer Aided Detection (CAD) system. COMPARISON: Comparison is made to exams dated: 10/31/2016 mammogram, 10/26/2015 mammogram, 10/22/2014 antonio mogram, 10/16/2013 mammogram, 10/11/2012 mammogram, and 10/11/2011 mammogram - [facility]. BREAST COMPOSITION: There are scattered areas of fibroglandular density in both breasts. FINDINGS: No suspicious masses, calcifications, or areas of architectural distortion are noted in ei ther breast. There has been no significant interval change compared to prior exams. Small circumscri bed benign-appearing masses are again noted bilaterally, not significantly changed and likely represe nt small cysts. Scattered bilateral benign-appearing calcifications are also stable. IMPRESSION: ACR BI-RADS CATEGORY 2: BENIGN There is no mammographic evidence of malignancy. A 1 year screening mammogram is recommended. The pa tient will receive written notification of the results. Approximately 10% of breast cancers are not detected with mammography. A negative mammographic report should not delay biopsy if a clinically suggestive mass is present. Marcie Shaikh M.D. /:11/02/2017 16:20:04 Director Medical Economics: Shira OJEDA)([place]), [facility] letter sent: Normal 1/2 BI-RADS Code: ACR BI-RADS Category 2: Benign
== END | disposition home or self-care (01) ==
LOC: C.MAMM 16:06
PROVIDERS: ATTEND Family Medicine
DX: Z12.31 Encounter for screening mammogram for malignant neoplasm of breast (principal)

== ENCOUNTER → 2018-03-15 | Outpatient (CLI) | payer BC ==
[~2018-03-15] VITALS: Ht 158.8 cm; Wt 106.9 kg
[~2018-03-15] MED LIST changes: -ASPEC81 PO; +ASPI-320 PO
[2018-03-15 15:57] VITALS: BP 131/82; PULSE 97; Ht 158.8 cm; Wt 106.9 kg
== END | disposition home or self-care (01) ==
LOC: C.NEUR 15:20
PROVIDERS: ATTEND Physician Assistant
DX: G47.33 Obstructive sleep apnea (adult) (pediatric) (principal)